=== PATIENT | female | born 1950 | race Caucasian/White ===

== ENCOUNTER → 2023-02-16 | Outpatient (CLI) | payer MEDICARE, SELFPAY ==
--- NOTE | 2023-02-15 | ASPSI_PTH ---
PATIENT: RAH ALVAREZ LOC: [facility] U#:[id number] AGE/SX: 73/F ROOM: RE02/16/[address]: Dr. Marcus Crawford MD : 1950 BED: DIS: 02/16/2023 SPEC #: [id number] RECD: 02/16/23 12:12 STATUS: LUCY TREVOR #: [id number] JESS: 02/15/23 00:[address]: Marcus Crawford DEPT: CYTOLOGY RECD BY: Rc Hernandez ENTERED: 02/16/23 13:32 SP TYPE: ASP WAYNE NEWMAN DR: Dr. Callum Washington MD Tissues: A - Thyroid gland, NOS B - Thyroid gland, NOS Procedures: Surgery Specimen Level IV Cytospin Fluid Cytology Other HEADER OPERATION: Fine needle aspiration left thyroid PRE-OP DIAGNOSIS: Abnormal thyroid ultrasound TISSUE SUBMITTED: A - Left thyroid fluid, B - Left thyroid x12 slides DIAGNOSIS CYTOLOGY A. Fine needle aspiration, left thyroid nodule (cytospin and cell block): Negative for malignant cells. Blood. B. Fine needle aspiration, left thyroid nodule (smears): Atypia of undetermined significance. See comment. AM:sara 02/17/2023 COMMENT B. The [place] System for thyroid diagnostic categorization was used in the evaluation of this case. The paucity of follicular cells precludes further evaluation. Clinical correlation is suggested. The follicular cells display Hurthle cell morphology. Multi-gene next-generation sequencing panel ([facility]) is recommended for this lesion. This recommendation was communicated to the physician's office. This case was reviewed and diagnosis discussed with Dr. Crawford on 02/22/2023. CYTOLOGY STUDY Slides are reviewed. CYTOLOGY GROSS A - Received is 15 ml of brown cloudy fluid labeled with the patient's name and and designated per the requisition as left thyroid. Submitted for cytology preparation including cell block. B - Received are 12 smears labeled with the patient's name and designated per the requisition as left thyroid. Submitted for staining. / sara 02/16/2023 TC:? CPT: 94181, 68616 x2
== END | disposition home or self-care (01) ==
PROVIDERS: PCP Internal Medicine; Referring Provider Surgery; Visit Provider Surgery
DX: R93.89 Abnormal findings on diagnostic imaging of other specified body structures (principal)
CPT/HCPCS: 88108; 88161; 88305